=== PATIENT | male | born 1960 | race Caucasian/White ===

== ENCOUNTER 2018-02-08 04:57 | Emergency (ER) | payer OTHER ==
[2018-02-08 05:39] VITALS: BP 156/96; PULSE 76; TEMP 98.3; BMI 37.6
--- NOTE | 2018-02-08 05:43 | PDOC ---
History of Present Illness - General Chief Complaint: Pain Stated Complaint: LEFT SHOULD PAIN Time Seen by Provider: 02/08/18 05:28 History Source: Patient Exam Limitations: No Limitations - History of Present Illness Initial Comments: 02/08/18 06:44 Patient is a 57-year-old male who presents emergency department today with left arm pain. Patient states the pain began 4 days ago. He states the pain started in his neck and slowly moved down his left arm. He states that the pain comes and goes, and it feels like someone is pinching him. States that the pain is relieved when he keeps his arm over his head. He took 2 Motrin with little relief of his symptoms. Denies trauma, chest pain, fevers, shortness of breath, difficulty breathing, palpitations, nausea, vomiting and diarrhea. Past History - Travel Traveled outside of the country in the last 30 days: No Close contact w/someone who was outside of country & ill: No - Past Medical History Allergies/Adverse Reactions: Allergies Allergy/AdvReac Type Severity Reaction Status Date / Time No Known Allergies Allergy Verified 02/08/18 05:36 Home Medications: Ambulatory Orders Tramadol HCl 50 mg PO Q6H #12 tablet MDD 200 mg 02/08/18 COPD: No Other medical history: Pt denies - Surgical History Appendectomy: Yes - Suicide/Smoking/Psychosocial Hx Smoking History: Former smoker Have you smoked in the past 12 months: No If you are a former smoker, when did you quit?: 30 yrs ago Information on smoking cessation initiated: No Hx Alcohol Use: No Drug/Substance Use Hx: No Substance Use Type: None Review of Systems - Review of Systems Able to Perform ROS?: Yes Comments:: 02/08/18 06:44 CONSTITUTIONAL: Absent: fever, chills, diaphoresis, generalized weakness, malaise, loss of appetite HEENT: Absent: rhinorrhea, nasal congestion, throat pain, throat swelling, difficulty swallowing, mouth swelling, ear pain, eye pain, visual Changes CARDIOVASCULAR: Absent: chest pain, loss of consciousness, palpitations, irregular heart rate, peripheral edema RESPIRATORY: Absent: cough, shortness of breath, dyspnea with exertion, orthopnea, wheezing, stridor, hemoptysis GASTROINTESTINAL: Absent: abdominal pain, abdominal distension, nausea, vomiting, diarrhea, constipation, melena, hematochezia GENITOURINARY: Absent: dysuria, frequency, urgency, hesitancy, hematuria, flank pain, genital pain MUSCULOSKELETAL: Present: L arm pain, L neck pain Absent: arthralgia, joint swelling SKIN: Absent: rash, itching, pallor HEMATOLOGIC/IMMUNOLOGIC: Absent: easy bleeding, easy bruising, lymphadenopathy, frequent infections ENDOCRINE: Absent: unexplained weight gain, unexplained weight loss, heat intolerance, cold intolerance NEUROLOGIC: Absent: headache, focal weakness or paresthesias, dizziness, unsteady gait, seizure, mental status changes, bladder or bowel incontinence PSYCHIATRIC: Absent: anxiety, depression, suicidal or homicidal ideation, hallucinations. Is the patient limited Japanese proficient: No *Physical Exam - Vital Signs Last Vital Signs Temp Pulse Resp BP Pulse Ox 98.3 F 76 18 156/96 96 02/08/18 05:37 02/08/18 05:37 02/08/18 05:37 02/08/18 05:37 02/08/18 05:37 - Physical Exam Comments: 02/08/18 06:45 GENERAL: Well developed, well nourished. Awake and alert. No acute distress. HEENT: Normocephalic, atraumatic. PERRLA, EOMI. No conjunctival pallor. Sclera are non- icteric. Moist mucous membranes. Oropharynx is clear. NECK: Supple. Full ROM. No JVD. Carotid pulses 2+ and symmetric, without bruits. No thyromegaly. No lymphadenopathy. CARDIOVASCULAR: Regular rate and rhythm. No murmurs, rubs, or gallops. Distal pulses are 2+ and symmetric. PULMONARY: No evidence of respiratory distress. Lungs clear to auscultation bilaterally. No wheezing, rales or rhonchi. ABDOMINAL: Soft. Non-tender. Non-distended. No rebound or guarding. No organomegaly. Normoactive bowel sounds. MUSCULOSKELETAL TTP of the L upper arm and L upper back. Normal range of motion at all joints. No bony deformities or tenderness. No CVA tenderness. EXTREMITIES: No cyanosis. No clubbing. No edema. No calf tenderness. SKIN: Warm and dry. Normal capillary refill. No rashes. No jaundice. NEUROLOGICAL: Alert, awake, appropriate. Cranial nerves 2-12 intact. No deficits to light touch and temperature in face, upper extremities and lower extremities. No motor deficits in the in face, upper extremities and lower extremities. Normoreflexic in the upper and lower extremities. Normal speech. Toes are down- going bilaterally. Gait is normal without ataxia. PSYCHIATRIC: Cooperative. Good eye contact. Appropriate mood and affect. ED Treatment Course - LABORATORY CBC & Chemistry Diagram: 02/08/18 07:43 02/08/18 07:43 Medical Decision Making - Medical Decision Making 02/08/18 06:46 Patient is a 57-year-old male medical history presenting with department today with left arm pain for 4 days. On exam pain is reproducible and alleviated with elevation of the left arm. Denies chest pain. Heart with regular rate and rhythm , lungs clear to auscultation bilaterally. I suspect this probably a pinched nerve. 1.EKG, shoulder x-ray 2.Toradol, Valium 3.reevaluate. 02/08/18 07:00 Sign out given to DISHA Rayo. Pt pending X-ray/EKG at this time. *DC/Admit/Observation/Transfer Diagnosis at time of Disposition: Arm pain Qualifiers: Laterality: left Qualified Code(s): M79.602 - Pain in left arm - Discharge Dispostion Disposition: HOME Condition at time of disposition: Improved - Prescriptions Prescriptions: Tramadol HCl 50 mg PO Q6H #12 tablet MDD 200 mg - Referrals Referrals: Marques Dyer MD [Primary Care Provider] - - Patient Instructions Printed Discharge Instructions: DI for Neck Pain Additional Instructions: It is possible that the cause of your neck/arm pain can be due arthritis w/ some narrowing of your spinal canal which was seen on your CT. Take Tylenol if pain is not severe, otherwise take tramadol as directed. You were given a copy of report to discuss with your PMD. If symptoms worsen, return to ER Print Language: SAMI - Post Discharge Activity
[2018-02-08] MEDS ORDERED: diazePAM 5 MG TABLET PO ONE (05:44)
[2018-02-08] MEDS ORDERED: KETOROLAC TROMETHAMINE 60 MG/2 ML VIAL IM ONE (05:44)
--- NOTE | 2018-02-08 05:54 | PDOC ---
*Physical Exam - Vital Signs Last Vital Signs Temp Pulse Resp BP Pulse Ox 98.3 F 76 18 156/96 96 02/08/18 05:37 02/08/18 05:37 02/08/18 05:37 02/08/18 05:37 02/08/18 05:37 ED Treatment Course - LABORATORY CBC & Chemistry Diagram: 02/08/18 07:43 02/08/18 07:43 Medical Decision Making - Medical Decision Making 02/08/18 05:53 Case discussed with DISHA Pleitez. Plan as per Maik. *DC/Admit/Observation/Transfer Diagnosis at time of Disposition: Arm pain - Discharge Dispostion Disposition: HOME Condition at time of disposition: Improved - Prescriptions Prescriptions: Tramadol HCl 50 mg PO Q6H #12 tablet MDD 200 mg - Referrals Referrals: Marques Dyer MD [Primary Care Provider] - - Patient Instructions Printed Discharge Instructions: DI for Neck Pain Additional Instructions: It is possible that the cause of your neck/arm pain can be due arthritis w/ some narrowing of your spinal canal which was seen on your CT. Take Tylenol if pain is not severe, otherwise take tramadol as directed. You were given a copy of report to discuss with your PMD. If symptoms worsen, return to ER Print Language: AFGHAN - Post Discharge Activity
[2018-02-08] MEDS ORDERED: KETOROLAC TROMETHAMINE 60 MG/2 ML VIAL ONE ×2 (06:23→07:23)
[2018-02-08] MEDS ORDERED: diazePAM 5 MG TABLET ONE ×2 (06:23→07:23)
[2018-02-08 07:55] LABS: BASO % 0.8 % (0-2.0); EOS % 4.8 % (0-4.5); HEMATOCRIT 44.7 % (35.4-49); HEMOGLOBIN 14.6 GM/dL (11.7-16.9); LYMPH % 29.3 % (8-40); MCH 29.5 pg (25.7-33.7); MCHC 32.7 g/dl (32.0-35.9); MEAN CELL VOLUME 90.3 fl (80-96); MEAN PLT VOLUME 8.3 fl (7.5-11.1); MONO % 16.3 % (3.8-10.2); NEUT % 48.8 % (42.8-82.8); PLATELET COUNT 231 K/MM3 (134-434); RBC 4.94 M/mm3 (4.00-5.60); RDW 13.9 % (11.9-15.9); WHITE BLOOD COUNT 6.3 K/mm3 (4.0-10.0)
--- NOTE | 2018-02-08 08:04 | PDOC ---
*Physical Exam - Vital Signs Last Vital Signs Temp Pulse Resp BP Pulse Ox 98.3 F 76 18 156/96 96 02/08/18 05:37 02/08/18 05:37 02/08/18 05:37 02/08/18 05:37 02/08/18 05:37 - Physical Exam General Appearance: Yes: Appropriately Dressed. No: Apparent Distress HEENT: positive: Normal Voice Neck: positive: Supple Respiratory/Chest: positive: Lungs Clear, Normal Breath Sounds. negative: Respiratory Distress Cardiovascular: positive: Regular Rate, S1, S2 Gastrointestinal/Abdominal: positive: Soft. negative: Tender Musculoskeletal: positive: Normal Inspection Extremity: positive: Normal Inspection, Normal Range of Motion, Tender (L upper arm), Other (upper strenght 5/5 to b/l UE). negative: Swelling Integumentary: positive: Dry, Warm Neurologic: positive: Fully Oriented, Alert, Normal Mood/Affect, Motor Strength 5/5 <Adelina Rayo - Last Filed: 02/08/18 11:21> - Vital Signs Last Vital Signs Temp Pulse Resp BP Pulse Ox 98.3 F 76 18 156/96 96 02/08/18 05:37 02/08/18 05:37 02/08/18 05:37 02/08/18 05:37 02/08/18 05:37 <Jennifer Jarrell - Last Filed: 02/08/18 12:19> ED Treatment Course - LABORATORY CBC & Chemistry Diagram: 02/08/18 07:43 02/08/18 07:43 - RADIOLOGY Radiology Studies Ordered: Category Date Time Status CERVICAL SPINE CT W/O CONTR [CT] Stat CT Scan 02/08/18 07:43 Ordered - Medications Given in the ED: ED Medications Discontinued Medications Generic Name Dose Route Start Last Admin Trade Name Freq PRN Reason Stop Dose Admin Diazepam 5 mg 02/08/18 05:44 02/08/18 07:22 Valium - PO 02/08/18 05:45 5 mg ONCE ONE Administration Ketorolac Tromethamine 60 mg 02/08/18 05:44 02/08/18 07:22 Toradol Injection - IM 02/08/18 05:45 60 mg ONCE ONE Administration <Adelina Rayo - Last Filed: 02/08/18 11:21> - LABORATORY CBC & Chemistry Diagram: 02/08/18 07:43 02/08/18 07:43 - ADDITIONAL ORDERS Additional order review: Laboratory Results 02/08/18 07:43 Sodium 142 Potassium 4.6 Chloride 103 Carbon Dioxide 34 H Anion Gap 5 L BUN 16 Creatinine 0.9 Creat Clearance w eGFR > 60 Random Glucose 83 Calcium 8.9 Total Bilirubin 0.3 AST 23 ALT 28 Alkaline Phosphatase 81 Creatine Kinase 116 Troponin I < 0.02 Total Protein 6.9 Albumin 3.4 02/08/18 07:43 RBC 4.94 MCV 90.3 MCHC 32.7 RDW 13.9 MPV 8.3 Neutrophils % 48.8 Lymphocytes % 29.3 Monocytes % 16.3 H Eosinophils % 4.8 H Basophils % 0.8 - Medications Given in the ED: ED Medications Discontinued Medications Generic Name Dose Route Start Last Admin Trade Name Alfredoq PRN Reason Stop Dose Admin Diazepam 5 mg 02/08/18 05:44 02/08/18 07:22 Valium - PO 02/08/18 05:45 5 mg ONCE ONE Administration Ketorolac Tromethamine 60 mg 02/08/18 05:44 02/08/18 07:22 Toradol Injection - IM 02/08/18 05:45 60 mg ONCE ONE Administration Tramadol HCl 50 mg 02/08/18 08:58 02/08/18 09:25 Ultram - PO 02/08/18 08:59 50 mg ONCE ONE Administration <Jennifer Jarrell - Last Filed: 02/08/18 12:19> Medical Decision Making - Medical Decision Making 02/08/18 08:00 Patient signed out to me at 7 AM Patient is a 57-year-old male who presents with neck and left arm pain that he says started 4 days ago when he woke up. Neck pain has since resolved and now just having pain to left arm, worse with movement. Not relieved with Motrin. Denies any sensory changes, upper extremity weakness. No h/o similar pain in past. No trauma. Denies chest and shortness of breath. On exam initially, pt was tender to palpation to left arm, but no joint swelling with full range of motion and strength intact. Suspect most likely muscular source. Possible radiculopathy. No obvious RF for DVT. Unlikely cardiac. EKG with some nonspecific T-wave abnormality, no old to compare. Labs including troponin pending. Given duration of pain, will likely not need serial Trop's. Will continue to manage pain. Per Dr. 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 Pt states pain significantly improved with meds. Labs negative. Stable for discharge with pain meds and to follow-up with PMD. Report of CT given to patient <Adelina Rayo - Last Filed: 02/08/18 11:21> *DC/Admit/Observation/Transfer <Adelina Rayo - Last Filed: 02/08/18 11:21> - Attestations Physician Attestion: I reviewed the case with the mid-level practitioner and agree with the mid- level practitioner's assessment, diagnosis and disposition. <Jennifer Jarrell - Last Filed: 02/08/18 12:19> Diagnosis at time of Disposition: Arm pain Qualifiers: Laterality: left Qualified Code(s): M79.602 - Pain in left arm - Discharge Dispostion Disposition: HOME Condition at time of disposition: Improved - Prescriptions Prescriptions: Tramadol HCl 50 mg PO Q6H #12 tablet MDD 200 mg - Referrals Referrals: Marques Dyer MD [Primary Care Provider] - - Patient Instructions Printed Discharge Instructions: DI for Neck Pain Additional Instructions: It is possible that the cause of your neck/arm pain can be due arthritis w/ some narrowing of your spinal canal which was seen on your CT. Take Tylenol if pain is not severe, otherwise take tramadol as directed. You were given a copy of report to discuss with your PMD. If symptoms worsen, return to ER - Post Discharge Activity
[2018-02-08 08:33] LABS: ALBUMIN 3.4 g/dl (3.4-5.0); ANION GAP 5 (8-16); BLOOD UREA NITROGEN 16 mg/dL (7-18); CALCIUM 8.9 mg/dL (8.5-10.1); CHLORIDE 103 mmol/L (98-107); CO2 34 mmol/L (21-32); CREATININE 0.9 mg/dL (0.7-1.3); GLUCOSE,RANDOM 83 mg/dL (74-106); POTASSIUM 4.6 mmol/L (3.5-5.1); SGOT/AST 23 U/L (15-37); SGPT/ALT 28 U/L (12-78); SODIUM 142 mmol/L (136-145)
[2018-02-08 08:36] LABS: ALK PHOS 81 U/L (45-117); BILIRUBIN,TOTAL 0.3 mg/dL (0.2-1.0); TOT PROT 6.9 g/dl (6.4-8.2)
[2018-02-08] MEDS ORDERED: traMADol HCL 50 MG TABLET PO ONE (08:58)
[2018-02-08] MEDS ORDERED: traMADol HCL 50 MG TABLET ONE (09:24)
--- NOTE | 2018-02-10 10:38 | EKG ---
Test Reason : Blood Pressure : / mmHG Vent. Rate : 070 BPM Atrial Rate : 070 BPM P-R Int : 140 ms QRS Dur : 082 ms QT Int : 382 ms P-R-T Axes : 017 031 050 degrees QTc Int : 412 ms NORMAL SINUS RHYTHM NONSPECIFIC T WAVE ABNORMALITY ABNORMAL ECG NO PREVIOUS ECGS AVAILABLE Confirmed by ANASTASIIA MA MD ([id number]) on 02/10/2018 10:38:35 AM Referred By: Confirmed By:ANASTASIIA MA MD
== END 2018-02-08 12:00 | disposition home or self-care (01) ==
LOC: JER 04:57
PROC: 3E0233Z Introduction of Anti-inflammatory into Muscle, Percutaneous Approach (ICD-10-PCS; principal; 2018-02-08)
DX: M79.602 Pain in left arm (principal); M47.892 Other spondylosis, cervical region; M48.02 Spinal stenosis, cervical region
CPT/HCPCS: 36415; 72125-TC; 80053; 82550; 84484; 85025; 93005; 93010; 96372; 99283-25

== ENCOUNTER 2018-04-23 09:44 | Emergency (ER) | payer OTHER ==
[2018-04-23 09:53] VITALS: BP 154/77; PULSE 88; TEMP 98; BMI 37.9
[2018-04-23] MEDS ORDERED: KETOROLAC TROMETHAMINE 60 MG/2 ML VIAL IM ONE (10:55)
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
[2018-04-23] MEDS ORDERED: KETOROLAC TROMETHAMINE 60 MG/2 ML VIAL ONE (11:00)
== END 2018-04-23 12:44 | disposition home or self-care (01) ==
LOC: JERFT 09:44
PROC: 3E0233Z Introduction of Anti-inflammatory into Muscle, Percutaneous Approach (ICD-10-PCS; principal; 2018-04-23)
DX: S16.1XXA Strain of muscle, fascia and tendon at neck level, initial encounter (principal); Z87.891 Personal history of nicotine dependence; X58.XXXA Exposure to other specified factors, initial encounter; Y93.89 Activity, other specified; Y92.9 Unspecified place or not applicable
CPT/HCPCS: 72050-TC-FY; 99281-25